=== PATIENT | female | born 1940 ===

== ENCOUNTER 2023-07-01 16:29 | Emergency (ER) | payer OTHER ==
[2023-07-01 16:55] LABS: BASO % 0.8 % (0.0-1.0); EOS # 0.3 10*3/uL (0.0-0.4); EOS % 5.1 % (1.0-4.0); LYMPH # 1.8 10*3/uL (1.3-4.4); LYMPH % 34.7 % (27.0-41.0); MEAN CELL VOLUME 93.3 fl (81.0-99.0); MEAN CORPUSCULAR HGB 29.7 pg (27.0-31.0); MEAN CORPUSCULAR HGB CONC 31.9 g/dl (33.0-37.0); MEAN PLATELET VOLUME 8.6 fl (9.6-12.3); MONO # 0.6 10*3/uL (0.1-1.0); MONO % 10.6 % (3.0-9.0); NEUT # 2.6 10*3/uL (2.3-7.9); NEUT % 48.6 % (47.0-73.0); PLATELET COUNT AUTOMATED 382 10*3/uL (130-400); RED BLOOD COUNT 3.43 10*6/uL (4.10-5.10); WHITE BLOOD COUNT 5.3 10*3/uL (4.8-10.8)
[2023-07-01 17:06] LABS: ACT PARTIAL THROMBO TIME 23.6 SECONDS (20.0-32.1)
[2023-07-01 17:41] LABS: ALKALINE PHOSPHATASE 95 U/L (46-116); BUN 22 mg/dl (9-23); CHLORIDE 108 mmol/L (98-107); LIPASE 35 U/L (12-53); POTASSIUM 3.5 mmol/L (3.4-5.1); SGPT/ALT 15 U/L (5-49); TOTAL PROTEIN 6.7 gm/dL (6.0-8.0)
[2023-07-01 21:53] LABS: BILIRUBIN Negative (Negative); BLOOD 1+ (Negative); CLARITY Clear (Clear); COLOR Yellow (Yellow); GLUCOSE Negative (Negative); KETONE Negative (Negative); LEUKO ESTERASE Negative (Negative); NITRITE Negative (Negative); PH 6.5 (4.5-8.0); UROBILINOGEN 0.2 E.U./dl (0.0-1.0)
[2023-07-01 22:10] LABS: BACTERIA 1+; MUCOUS 1+
== END 2023-07-02 00:58 ==
LOC: ED 16:29
PROVIDERS: Emergency Medicine
DX: R45.1 Restlessness and agitation (principal); I10 Essential (primary) hypertension; F32.A Depression, unspecified; K21.9 Gastro-esophageal reflux disease without esophagitis; F03.90 Unspecified dementia, unspecified severity, without behavioral disturbance, psychotic disturbance, mood disturbance, and anxiety; R10.2 Pelvic and perineal pain; Z88.2 Allergy status to sulfonamides; Z88.8 Allergy status to other drugs, medicaments and biological substances

== ENCOUNTER 2023-08-21 13:15 | Inpatient (IN) | payer OTHER ==
[~2023-08-21] VITALS: Ht 172.7 cm; Wt 74.3 kg
[2023-08-21 13:25] VITALS: BP 174/72
[2023-08-21 13:48] LABS: BASO % 0.2 % (0.0-1.0); EOS % 0.1 % (1.0-4.0); HEMATOCRIT 35.8 % (37.0-47.0); LYMPH # 1.7 10*3/uL (1.3-4.4); MEAN CELL VOLUME 92.3 fl (81.0-99.0); MEAN CORPUSCULAR HGB 28.9 pg (27.0-31.0); MEAN CORPUSCULAR HGB CONC 31.3 g/dl (33.0-37.0); MEAN PLATELET VOLUME 9.6 fl (9.6-12.3); MONO # 1.2 10*3/uL (0.1-1.0); MONO % 14.6 % (3.0-9.0); NEUT # 5.1 10*3/uL (2.3-7.9); NEUT % 63.7 % (47.0-73.0); PLATELET COUNT AUTOMATED 305 10*3/uL (130-400); RED BLOOD COUNT 3.88 10*6/uL (4.10-5.10); RED CELL DISTRI WIDTH 14.3 % (0-14.5)
[2023-08-21 14:05] LABS: ACT PARTIAL THROMBO TIME 27.1 SECONDS (20.0-32.1)
[2023-08-21 14:09] LABS: ALKALINE PHOSPHATASE 83 U/L (46-116); BUN 27 mg/dl (9-23); CHLORIDE 108 mmol/L (98-107); LIPASE 23 U/L (12-53); POTASSIUM 3.4 mmol/L (3.4-5.1); SGPT/ALT 11 U/L (5-49); TOTAL PROTEIN 7.2 gm/dL (6.0-8.0); VALPROIC ACID (DEPAKENE) 53.4 ug/ml (50-100)
[2023-08-21 14:45] LABS: BILIRUBIN Negative (Negative); BLOOD Trace-Lysed (Negative); CLARITY Clear (Clear); COLOR Dark Yellow (Yellow); GLUCOSE Negative (Negative); KETONE 1+ (Negative); LEUKO ESTERASE Negative (Negative); NITRITE Negative (Negative); PH 6.5 (4.5-8.0); SPECIFIC GRAVITY 1.025 (1.001-1.030)
[2023-08-21 15:34] LABS: MUCOUS 1+; RBC 16-20 rbc/hpf (0-2)
[2023-08-21] MEDS ORDERED: SODIUM CHLORIDE 0.9% 1,000 ML IV ONE ×2 (15:40→17:40)
[2023-08-21] MEDS ORDERED: Magnesium Hydroxide 30 ML UDC PO PRN (16:00)
[2023-08-21] MEDS ORDERED: BISACODYL 10 MG SUPP R PRN (16:00)
[2023-08-21] MEDS ORDERED: ACETAMINOPHEN 650 MG SUPP R PRN (16:00)
[2023-08-21] MEDS ORDERED: Acetaminophen/Hydrocodone 5 MG/325 MG TABLET PO PRN (16:00)
[2023-08-21] MEDS ORDERED: ACETAMINOPHEN 325 MG TAB PO PRN (16:00)
[2023-08-21] MEDS ORDERED: BISACODYL 5 MG TAB PO PRN (16:00)
[2023-08-21] MEDS ORDERED: DEPAKOTE SPRIN125 MG PO (16:35)
[2023-08-21] MEDS ORDERED: Avapro300 MG PO (16:36)
[2023-08-21] MEDS ORDERED: ATIVAN0.5 MG PO (16:36)
[2023-08-21] MEDS ORDERED: RISPERDAL1 MG/1 ML PO (16:37)
[2023-08-21] MEDS ORDERED: OMEPRAZOLE40 MG PO (16:37)
[2023-08-21] MEDS ORDERED: MORPHINE Sulfate 2 MG/ML SYR IV PRN (17:40)
[2023-08-21] MEDS ORDERED: DIAZEPAM 10 MG/2 ML SYR IV PRN (17:40)
[2023-08-21] MEDS ORDERED: MORPHINE Sulfate 2 MG/ML SYR IM PRN (18:20)
[2023-08-21] MEDS ORDERED: DIAZEPAM 10 MG/2 ML SYR IM PRN (18:20)
[2023-08-22] MEDS ORDERED: Pantoprazole Sodium 40 MG VIAL IV SCH (06:00)
[2023-08-22 08:15] VITALS: BP 176/68
[2023-08-22 08:45] VITALS: BP 161/70
[2023-08-22] MEDS ORDERED: Enoxaparin Sodium 40 MG/0.4 ML SYR SC SCH (10:00)
[2023-08-22] MEDS ORDERED: LORazepam 2 MG TAB SL PRN (10:00)
[2023-08-22] MEDS ORDERED: Morphine Sulfate 10 MG/0.5 ML CONCENTRATE ORAL SYRINGE SL PRN (10:00)
[2023-08-22] MEDS ORDERED: LORazepam 1 MG TAB SL PRN (10:10)
[2023-08-22 12:00] VITALS: BP 147/76; BP 172/71
[2023-08-22 17:55] VITALS: BP 151/75
[2023-08-22 20:00] VITALS: BP 147/51
[2023-08-23] VITALS: BP 131/52
[2023-08-23 08:00] VITALS: BP 175/60
[2023-08-23] MEDS ORDERED: FOAM BANDAGE HEEL T ONE (08:29)
[2023-08-23] MEDS ORDERED: CHAIR CUSHION DEVICE ONE (08:29)
[2023-08-23] MEDS ORDERED: HEEL PROTECTOR DEVICE ONE (08:29)
[2023-08-23 12:00] VITALS: BP 152/69
[2023-08-23 16:00] VITALS: BP 141/68
[2023-08-23] MEDS ORDERED: Morphine Sulfate 10 MG/0.5 ML CONCENTRATE ORAL SYRINGE SL PRN (17:19)
[2023-08-23] MEDS ORDERED: LORazepam 2 MG/ML ML SL PRN (17:20)
[2023-08-23] MEDS ORDERED: Morphine Sulfate 10 MG/0.5 ML CONCENTRATE ORAL SYRINGE SL SCH (18:00)
[2023-08-23 20:00] VITALS: BP 152/52
[2023-08-23] MEDS ORDERED: LORazepam 1 MG TAB SL SCH (22:00)
[2023-08-24] VITALS: BP 125/61
[2023-08-24 08:00] VITALS: BP 143/70
[2023-08-24] MEDS ORDERED: HYDROGEL WOUND DRESSING T ONE (09:52)
[2023-08-24 12:00] VITALS: BP 130/51
[2023-08-24] MEDS ORDERED: LORazepam 2 MG/ML ML SL SCH (14:00)
[2023-08-24 16:00] VITALS: BP 73/42
[2023-08-24 20:00] VITALS: BP 124/68
[2023-08-25] VITALS: BP 124/51
[2023-08-25 08:00] VITALS: BP 131/56
[2023-08-25] MEDS ORDERED: MORPHINE S10 MG/5 M2 PO (13:56)
[2023-08-25] MEDS ORDERED: ATIVAN ORAL C2 MG/ML PO (13:56)
== END 2023-08-25 10:58 | disposition hospice, home (50) | DRG 640 ==
LOC: ED 13:15 → 5E 15:51 → EDHOLD 15:51 → 5E 08-22 07:33
PROVIDERS: Emergency Medicine; ADMIT Internal Medicine; ATTEND Internal Medicine
DX: E86.0 Dehydration (principal); G93.41 Metabolic encephalopathy; E44.0 Moderate protein-calorie malnutrition; I10 Essential (primary) hypertension; E78.5 Hyperlipidemia, unspecified; Z66 Do not resuscitate; F32.A Depression, unspecified; D64.9 Anemia, unspecified; G30.9 Alzheimer's disease, unspecified; F02.80 Dementia in other diseases classified elsewhere, unspecified severity, without behavioral disturbance, psychotic disturbance, mood disturbance, and anxiety; R62.7 Adult failure to thrive; Z88.2 Allergy status to sulfonamides; Z88.8 Allergy status to other drugs, medicaments and biological substances; Z51.5 Encounter for palliative care; Z68.24 Body mass index [BMI] 24.0-24.9, adult